=== PATIENT | male | born 1985 | race Caucasian/White ===

== ENCOUNTER 2017-10-24 21:54 | Emergency (ER) | payer OTHER ==
--- NOTE | 2017-10-24 21:59 | EDPHY ---
H & P Time Seen by Provider: 10/24/17 21:55 HPI/ROS: HPI CHIEF COMPLAINT: Low back pain, diffuse body aches. HISTORY OF PRESENT ILLNESS: Patient is a 32-year-old male, presents emergency room with low back pain. Patient reports 3 days ago he had a seizure. He states that approximately 3 days ago he started developing some low back pain after he had a seizure. He has a history of epilepsy. He takes Lamictal. He states he thinks he may have injured his back when he had a seizure. The pain is located in the lumbar region paravertebral on the right side low in his lumbar region. Does not radiate anywhere. He describes it as sharp stabbing. It does not go down his leg. He has no saddle anesthesia. He has no leg weakness. He ambulated into the emergency room. He has no fever. There was no direct back trauma. Additionally patient reports that he has diffuse entire body aches. He states that all his muscles hurt him except his neck and his head. He denies any trauma. He is unsure if that is muscle aches from his seizure 3 days ago. He also reports to me that is unsure how long the seizure was 3 days ago. Prior to arrival to the emergency room he did arrive by private vehicle he states that he took 2 Vicodin, and ibuprofen to help with his discomfort he states that it did help slightly. Past Medical History: Epilepsy Past Surgical History: No recent surgical history Social History: Smokes marijuana. Denies alcohol or other drugs. Family History: Noncontributory ROS REVIEW OF SYSTEMS: A comprehensive 10 point review of systems is otherwise negative aside from elements mentioned in the history of present illness. Exam Constitutional appears nontoxic, in no acute distress, triage nursing summary reviewed, vital signs reviewed, awake/alert. Eyes normal conjunctivae and sclera, EOMI, PERRLA. HENT normal inspection, atraumatic, moist mucus membranes, no epistaxis, neck supple/ no meningismus, no raccoon eyes. Respiratory clear to auscultation bilaterally, normal breath sounds, no respiratory distress, no wheezing. Cardiovascular rate normal, regular rhythm, no murmur, no edema, distal pulses normal. Gastrointestinal soft, non-tender, no rebound, no guarding, normal bowel sounds, no distension, no pulsatile mass. Genitourinary no CVA tenderness. Musculoskeletal no midline vertebral tenderness, full range of motion, no calf swelling, no tenderness of extremities, no meningismus, good pulses, neurovascularly intact. Skin pink, warm, & dry, no rash, skin atraumatic. Neurologic normal leg strength bilaterally, awake, alert and oriented x 3, AAOx3, moves all 4 extremities equally, motor intact, sensory intact, CN II-XII intact, normal cerebellar, normal vision, normal speech. Psychiatric normal mood/affect. Heme/Lymph/Immune no lymphadenopathy. Differential Diagnosis: Includes but is not limited to in a particular order musculoskeletal pain from seizure, rhabdomyolysis, dehydration, electrolyte disturbance, disc herniation, annular tear, sciatica, nerve root compression, compression fracture, spinal epidural abscess Medical Decision Making: Plan for this patient is neurological exam is unremarkable he has normal leg strength, is complaining of low back pain after seizure. Plan will be for lumbar spine x-ray, IV establishment IV fluid bolus, check CK for rhabdomyolysis, IV Toradol for pain control, IV Valium for muscle spasm 2.5 mg, and re-evaluate. Re-evaluation: 0110AM: Patient re-evaluate he is feeling much better. In no acute distress. He is back pain is much improved after IV fentanyl, IV Valium, IV fluids. He states he feels much better. Is re-examination he has no focal neuro deficit on exam. He has good bilateral lower extremity strength. Plan for this patient I will place him on Decadron for inflammation, and [place] for severe pain. Limited supply of [place]. I do recommend he follows up with his primary care doctor. Additionally discussed return precautions with me understands return emergency room if develops worsening back pain, numbness or tingling or weakness. On re-examination there are no red flags. There is no signs of cauda equina. He is feeling much better. X-ray of the lumbar spine reviewed. No evidence of malalignment or compression fracture. Blood work reviewed shows he slightly dry on exam. He has received 2 L here of normal saline in the ER. 0201: . He is requesting discharge with pain medicine. Neurological exam is unremarkable feels better after IV pain medicine. Requesting discharge home. 0242: Patient did attempt to ambulate however had a very unsteady gait is a fall risk. He is now complaining of worsening lumbar back pain. Same region. His neurological exam is unchanged. I have ordered this patient 0.5 mg IV Dilaudid for pain control. And CT scan lumbar spine to further evaluate his back pain. X-rays previously reviewed by myself is unremarkable. CT scan of the lumbar spine. Called to me by Dr. Norris. Unremarkable for acute fracture. No significant malalignment. 0403: Patient ambulated well throughout the emergency room. He states his back pain is greatly improved. He has a normal gait. His neurological exam is unremarkable. Prescription for Decadron and pain medicine as been prescribed. Recommend follow up with his primary care doctor. Return precautions discussed he understands. Source: Patient, Family Constitutional: Initial Vital Signs Temperature (C) 36.4 C 10/24/17 21:55 Heart Rate 100 10/24/17 21:55 Respiratory Rate 20 10/24/17 21:55 Blood Pressure 142/92 H 10/24/17 21:55 O2 Sat (%) 99 10/24/17 21:55 O2 Delivery Mode Room Air Allergies/Adverse Reactions: No Known Allergies Allergy (Unverified 10/24/17 22:12) Home Medications: Medication Instructions Recorded Otherszmeds 10/24/17 Xanax 10/24/17 lamOTRIGine 10/24/17 Dexamethasone [Decadron 4 MG (*)] 4 mg PO DAILY #4 tab 10/25/17 Hydrocodone/APAP 5/325 [[place] 1 - 2 tab PO Q4H PRN #10 tab 10/25/17 5/325] Ibuprofen [Motrin (*)] 800 mg PO Q6-8PRN #10 tab 10/25/17 Medical Decision Making - Data Points Laboratory Results: Laboratory Results 10/24/17 22:14 10/25/17 01:15 10/25/17 10/24/17 10/24/17 01:15 22:14 22:14 WBC 10.95 10^3/uL H 10^3/uL (3.80-9.50) RBC 5.41 10^6/uL 10^6/uL (4.40-6.38) Hgb 16.6 g/dL g/dL (13.7-17.5) Hct 45.9 % % (40.0-51.0) MCV 84.8 fL fL (81.5-99.8) MCH 30.7 pg pg (27.9-34.1) MCHC 36.2 g/dL g/dL (32.4-36.7) RDW 11.8 % % (11.5-15.2) Plt Count 367 10^3/uL 10^3/uL (150-400) MPV 9.7 fL fL (8.7-11.7) Neut % (Auto) 51.3 % % (39.3-74.2) Lymph % (Auto) 36.3 % % (15.0-45.0) [place] % (Auto) 10.1 % % (4.5-13.0) Eos % (Auto) 1.7 % % (0.6-7.6) Baso % (Auto) 0.4 % % (0.3-1.7) Nucleat RBC Rel Count 0.0 % % (0.0-0.2) Absolute Neuts (auto) 5.62 10^3/uL 10^3/uL (1.70-6.50) Absolute Lymphs (auto) 3.97 10^3/uL H 10^3/uL (1.00-3.00) Absolute Monos (auto) 1.11 10^3/uL H 10^3/uL (0.30-0.80) Absolute Eos (auto) 0.19 10^3/uL 10^3/uL (0.03-0.40) Absolute Basos (auto) 0.04 10^3/uL 10^3/uL (0.02-0.10) Absolute Nucleated RBC 0.00 10^3/uL 10^3/uL (0-0.01) Immature Gran % 0.2 % % (0.0-1.1) Immature Gran # 0.02 10^3/uL 10^3/uL (0.00-0.10) Sodium 145 mEq/L mEq/L 142 mEq/L mEq/L (135-145) (135-145) Potassium 3.8 mEq/L mEq/L 3.9 mEq/L mEq/L (3.5-5.2) (3.5-5.2) Chloride 110 mEq/L mEq/L 102 mEq/L mEq/L (97-110) (97-110) Carbon Dioxide 22 mEq/l mEq/l 21 mEq/l L mEq/l (22-31) (22-31) Anion Gap 13 mEq/L mEq/L 19 mEq/L H mEq/L (8-16) (8-16) BUN 27 mg/dL H mg/dL 27 mg/dL H mg/dL (7-23) (7-23) Creatinine 1.1 mg/dL mg/dL 1.5 mg/dL H mg/dL (0.7-1.3) (0.7-1.3) Estimated GFR > 60 55 Glucose 94 mg/dL mg/dL 111 mg/dL H mg/dL (70-100) (70-100) Calcium 7.6 mg/dL L D mg/dL 9.7 mg/dL mg/dL (8.5-10.4) (8.5-10.4) Total Bilirubin 0.8 mg/dL mg/dL (0.1-1.4) Conjugated Bilirubin 0.5 mg/dL mg/dL (0.0-0.5) Unconjugated Bilirubin 0.3 mg/dL mg/dL (0.0-1.1) AST 21 IU/L IU/L (17-59) ALT 42 IU/L IU/L (21-72) Alkaline Phosphatase 74 IU/L IU/L (38-126) Creatine Kinase 146 IU/L IU/L (0-224) Total Protein 7.7 g/dL g/dL (6.3-8.2) Albumin 4.6 g/dL g/dL (3.5-5.0) Lipase 170 IU/L IU/L (23-300) TSH 0.993 uIU/mL uIU/mL (0.465-4.680) Medications Given: Discontinued Medications Diazepam (Valium) 2.5 mg IVP EDNOW ONE Stop: 10/24/17 22:46 Last Admin: 10/24/17 22:53 Dose: 2.5 mg Fentanyl (Sublimaze) 50 mcg IVP EDNOW ONE Stop: 10/24/17 23:40 Last Admin: 10/24/17 23:58 Dose: 50 mcg Hydromorphone HCl (Dilaudid) 0.5 mg IVP EDNOW ONE Stop: 10/25/17 02:43 Last Admin: 10/25/17 02:49 Dose: 0.5 mg Sodium Chloride (Ns) 1,000 mls @ 0 mls/hr IV EDNOW ONE; Wide Open PRN Reason: Protocol Stop: 10/24/17 22:46 Last Admin: 10/24/17 22:53 Dose: 1,000 mls Sodium Chloride (Ns) 1,000 mls @ 0 mls/hr IV ONCE ONE PRN Reason: Wide Open Stop: 10/24/17 23:40 Last Admin: 10/24/17 23:59 Dose: 1,000 mls Ketorolac Tromethamine (Toradol) 15 mg IVP EDNOW ONE Stop: 10/24/17 22:46 Last Admin: 10/24/17 22:53 Dose: 15 mg Departure - Departure Disposition: [facility] Inpatient Acute Clinical Impression: Back pain Qualifiers: Back pain location: low back pain Chronicity: acute Back pain laterality: unspecified Sciatica presence: without sciatica Qualified Code(s): M54.5 - Low back pain Condition: Fair Instructions: Acute Low Back Pain (ED) Additional Instructions: 1. Recommend rest. 2. Stay well-hydrated. 3. Recommend [place] for severe pain. 4. Decadron as prescribed. 5. Ice her back. 6. Follow up with primary care. 7. Return emergency room if you have worsening back pain or worsening symptoms. Referrals: NONE *PRIMARY CARE P,. [Primary Care Provider] - As per Instructions Tessa Lazo MD [Medical Doctor] - As per Instructions Prescriptions: Dexamethasone [Decadron 4 MG (*)] 4 mg PO DAILY #4 tab Hydrocodone/APAP 5/325 [[place] 5/325] 1 - 2 tab PO Q4H PRN #10 tab PRN Reason: Pain, Moderate Ibuprofen [Motrin (*)] 800 mg PO Q6-8PRN #10 tab
[2017-10-24] MEDS ORDERED: NS 1,000 ML IV ONE ×2 (22:45→23:39)
[2017-10-24] MEDS ORDERED: KETOROLAC 15 MG/1 ML SDV IVP ONE (22:45)
[2017-10-24] MEDS ORDERED: DIAZEPAM 5 MG/ML 1 ML SYR IVP ONE (22:45)
[2017-10-24 22:53] LABS: PLATELET COUNT 367 10^3/uL (150-400)
[2017-10-24 22:57] LABS: CREATINE KINASE 146 IU/L (0-224)
[2017-10-24] MEDS ORDERED: fentaNYL 100 MCG/2 ML INJ IVP ONE (23:39)
[2017-10-25] MEDS ORDERED: HYDROmorphONE/DILAUDID 2 MG/ML INJ IVP ONE (02:42)
[2017-10-25 04:16] VITALS: BP 127/67
== END 2017-10-25 04:10 | disposition still patient (30) ==
DX: M54.5 Low back pain (principal); E86.9 Volume depletion, unspecified
CPT/HCPCS: 96374; J1170; J1885; J3010; J3360

== ENCOUNTER 2018-07-02 12:34 | Emergency (ER) | payer OTHER ==
--- NOTE | 2018-07-02 12:50 | EDPHY ---
H & P Stated Complaint: seizure Time Seen by Provider: 07/02/18 12:38 HPI/ROS: CHIEF COMPLAINT: Seizure during dance class HISTORY OF PRESENT ILLNESS: 33-year-old male history of seizure disorder, compliant with his arrives via ambulance after a witnessed seizure during a dance class today. He remembers dancing remembers waking up on the floor feeling confused. He became progressively more awake and alert en route via ambulance. Does note that he had poor sleep last evening which, according to the patient, is a common trigger for breakthrough seizures. He has been compliant with his Lamictal and other medications. He has no complaints of pain or discomfort. He is requesting to sleep in the ER for period of time. 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 REVIEW OF SYSTEMS: 10 systems reviewed and negative with the exception of the elements mentioned in the history of present illness PAST MEDICAL/SURGICAL HISTORY: Seizure disorder. no anticoagulant use SOCIAL HISTORY: denies alcohol use at time of incident PHYSICAL EXAM 1) GENERAL: Well-developed, well-nourished, alert and oriented. Appears to be in no acute distress. Answering questions appropriately. 2) HEAD: Normocephalic, atraumatic, no hematoma, no depression 3) HEENT: Pupils equal, round, reactive to light bilaterally. Negative [place]. Nasopharynx, oropharynx, clear. No deformity or angulation of nose. No septal hematoma. No rhinorrhea. No oral trauma. Ears bilaterally with normal tympanic membranes. Left frontal tongue abrasion. No hemotympanum. No fluid or blood in the external auditory canal. No raccoon eyes. No Harris sign. Teeth are normally aligned with no gross malocclusion, TMJ bilaterally nontender , facial bones nontender including the zygomatic arch, maxilla mandible. 4) NECK: No cervical collar is on. Posterior cervical spine is nontender, no stepoff, no effusion. Full range of motion which does not elicit any midline cervical spine pain, no posterior midline tenderness, no step-off. 5) LUNGS: Clear to auscultation bilaterally, no wheezes, no rhonchi, no retractions. No obvious signs of trauma. No chest wall pain. No flaring, no grunting. Moving symmetrically. No crepitus. 6) HEART: [Regular rate and rhythm, 7) ABDOMEN: No guarding, no rebound, no focal tenderness, no peritoneal signs, no signs of trauma, no ecchymosis 8) MUSCULOSKELETAL: Moving all extremities, no focal areas of tenderness, no obvious trauma. 9) BACK: No midline vertebral tenderness, no fluctuance, no step-off, no obvious trauma, no visual or palpable abnormality. 10) SKIN: No laceration. No abrasion 11) NEURO: Awake, alert, and oriented to person, place and time. Answers questions appropriately. There were no obvious focal neurologic abnormalities. No cerebellar dysfunction. Cranial nerves 2 through to 12 intact. Normal steady gait. Upper and lower extremities bilaterally with strength 5 / 5, reflexes 2+. u DIFFERENTIAL DIAGNOSIS: Not necessarily in any particular order, my differential diagnosis includes, but is not limited to, concussion, skull fracture, intraparenchymal contusion, subarachnoid, subdural and epidural hematoma. The patient understands that this diagnosis is provisional and can never be 100% accurate. - Personal History Current Tetanus/Diphtheria Vaccine: Yes Current Tetanus Diphtheria and Acellular Pertussis (TDAP): Yes - Medical/Surgical History Hx Asthma: No Hx Chronic Respiratory Disease: No Hx Diabetes: No Hx Cardiac Disease: No Hx Renal Disease: No Hx Cirrhosis: No Hx Alcoholism: No Hx HIV/AIDS: No Hx Splenectomy or Spleen Trauma: No Other PMH: EPILEPSY - Social History Smoking Status: Never smoked Constitutional: Initial Vital Signs Temperature (C) 37.1 C 07/02/18 12:38 Heart Rate 98 07/02/18 12:38 Respiratory Rate 18 07/02/18 12:38 O2 Sat (%) 97 07/02/18 12:38 O2 Delivery Mode Room Air Allergies/Adverse Reactions: No Known Allergies Allergy (Unverified 10/24/17 22:12) Home Medications: Medication Instructions Recorded Otherszmeds 10/24/17 Xanax 10/24/17 lamOTRIGine 10/24/17 Medical Decision Making ED Course/Re-evaluation: 2:15 p.m.: Re-evaluation. Parents at bedside they would like to take patient home. Patient is sleeping. He has been asymptomatic in the ER. Plan will be discharged with my usual customary seizure precautions instructions. Recommend he get sleep and stay compliant with his medications. No imaging at this time, patient has no evidence of head injury, is no longer somnolent is awake alert answering questions appropriately. Patient and parents feel comfortable being discharged. They requests name of primary care referral for follow-up. Care of patient under supervision of secondary supervising physician Dr Sepulveda with whom I discussed case. - Data Points Laboratory Results: Laboratory Results 07/02/18 13:02 07/02/18 13:02 07/02/18 07/02/18 13:02 13:02 WBC 4.28 10^3/uL 10^3/uL (3.80-9.50) RBC 5.49 10^6/uL 10^6/uL (4.40-6.38) Hgb 16.6 g/dL g/dL (13.7-17.5) Hct 46.5 % % (40.0-51.0) MCV 84.7 fL fL (81.5-99.8) MCH 30.2 pg pg (27.9-34.1) MCHC 35.7 g/dL g/dL (32.4-36.7) RDW 11.9 % % (11.5-15.2) Plt Count 235 10^3/uL 10^3/uL (150-400) MPV 9.8 fL fL (8.7-11.7) Neut % (Auto) 69.6 % % (39.3-74.2) Lymph % (Auto) 20.8 % % (15.0-45.0) [place] % (Auto) 7.5 % % (4.5-13.0) Eos % (Auto) 1.2 % % (0.6-7.6) Baso % (Auto) 0.7 % % (0.3-1.7) Nucleat RBC Rel Count 0.0 % % (0.0-0.2) Absolute Neuts (auto) 2.98 10^3/uL 10^3/uL (1.70-6.50) Absolute Lymphs (auto) 0.89 10^3/uL L 10^3/uL (1.00-3.00) Absolute Monos (auto) 0.32 10^3/uL 10^3/uL (0.30-0.80) Absolute Eos (auto) 0.05 10^3/uL 10^3/uL (0.03-0.40) Absolute Basos (auto) 0.03 10^3/uL 10^3/uL (0.02-0.10) Absolute Nucleated RBC 0.00 10^3/uL 10^3/uL (0-0.01) Immature Gran % 0.2 % % (0.0-1.1) Immature Gran # 0.01 10^3/uL 10^3/uL (0.00-0.10) Sodium 137 mEq/L mEq/L (135-145) Potassium 4.6 mEq/L mEq/L (3.5-5.2) Chloride 106 mEq/L mEq/L (97-110) Carbon Dioxide 23 mEq/l mEq/l (22-31) Anion Gap 8 mEq/L mEq/L (6-14) BUN 25 mg/dL H mg/dL (7-23) Creatinine 1.2 mg/dL mg/dL (0.7-1.3) Estimated GFR > 60 Glucose 106 mg/dL H mg/dL (70-100) Calcium 9.7 mg/dL mg/dL (8.5-10.4) Medications Given: Discontinued Medications Lorazepam (Ativan Injection) 1 mg IVP EDNOW ONE Stop: 07/02/18 13:04 Last Admin: 07/02/18 13:11 Dose: 1 mg Departure - Departure Disposition: Home, Routine, Self-Care Clinical Impression: Seizure Condition: Good Instructions: Epilepsy (ED) Additional Instructions: You may have had a seizure. Until your cleared by the your neurologist do not: Drive, swim alone, climb to heights, operate machinery. Take her medicine as prescribed. Try to get some sleep. Referrals: Follow-up, with your neurologist 3-4 days [Other] - As per Instructions Michael Kmi DO [Doctor of Osteopathy] - 5-7 days, call for appt.
[2018-07-02] MEDS ORDERED: LORazepam 2 MG/ML INJ IVP ONE (13:03)
[2018-07-02 13:23] LABS: PLATELET COUNT 235 10^3/uL (150-400)
== END 2018-07-02 14:39 | disposition home or self-care (01) ==
LOC: EDBD → EDUNIT#
DX: G40.909 Epilepsy, unspecified, not intractable, without status epilepticus (principal); Z79.899 Other long term (current) drug therapy
CPT/HCPCS: 96374; J2060